=== PATIENT | male | born 1960 | race Two or more races ===

== ENCOUNTER 2018-11-04 18:55 | Emergency (ER) | payer OTHER ==
[~2018-11-04] VITALS: Ht 180.3 cm; Wt 108.0 kg
[2018-11-04 18:59] VITALS: BP 143/79
[2018-11-04] MEDS ORDERED: FLUORESCEIN SOD 1 MG TEST STRIP LEFTEYE ONE (20:15)
[2018-11-04] MEDS ORDERED: TETRACAINE HCL 0.5% OPTH(EYE) SOLN 4ML LEFTEYE ONE (20:15)
== END 2018-11-04 21:02 | disposition home or self-care (01) ==
LOC: ER 18:55
DX: T15.02XA Foreign body in cornea, left eye, initial encounter (principal); X58.XXXA Exposure to other specified factors, initial encounter; Y93.89 Activity, other specified; Y92.89 Other specified places as the place of occurrence of the external cause; Y99.8 Other external cause status
CPT/HCPCS: 65222